=== PATIENT | male | born 1990 | race Asian ===

== ENCOUNTER 2016-06-14 12:43 | Emergency (ER) | payer SELFPAY ==
[~2016-06-14] VITALS: Ht 185.4 cm; Wt 76.2 kg
[2016-06-14 12:58] VITALS: BP 108/79
== END 2016-06-14 14:36 | disposition home or self-care (01) ==
LOC: ER 12:56
DX: S90.02XA Contusion of left ankle, initial encounter (principal); X58.XXXA Exposure to other specified factors, initial encounter; Y93.67 Activity, basketball; Y99.8 Other external cause status; Y92.89 Other specified places as the place of occurrence of the external cause
CPT/HCPCS: 73610; 73630

== ENCOUNTER 2018-07-15 14:11 | Emergency (ER) | payer MEDICAID ==
[~2018-07-15] VITALS: Ht 185.4 cm; Wt 83.9 kg
[2018-07-15 14:36] VITALS: BP 118/72
== END 2018-07-15 15:45 | disposition home or self-care (01) ==
LOC: ER 14:11
DX: J20.9 Acute bronchitis, unspecified (principal); J03.90 Acute tonsillitis, unspecified; F17.210 Nicotine dependence, cigarettes, uncomplicated
CPT/HCPCS: 71046